=== PATIENT | female | born 1970 | race Caucasian/White ===

== ENCOUNTER → 2017-07-11 | Day surgery (SDC) | payer OTHER ==
[~2017-07-11] VITALS: Ht 157.4 cm; Wt 54.9 kg
[~2017-07-11] MED LIST: PROPRANOLOL HCL60 M1 PO; SUMATRIPTAN SU100 M1 PO; ZANTAC 150150 MG PO; ZYRTEC10 MG PO
--- NOTE | ~2017-07-11 | O ---
[place], [place] OPERATIVE NOTE NAME: DAVE ROD UNIT #: [id number] ROOM: DOCTOR: ROWENA HARRISDAVID BIRTHDATE: [birth year] DOS: 07/11/2017 HISTORY OF PRESENT ILLNESS: A 46-year-old, who was presented with nonspecific epigastric abdominal pain or constipation. Has been given a trial of Amitiza for management of constipation. Also, the patient with abnormal LFTs, minimal alpha fetoprotein elevation. HIDA scan normal. Sonogram ____ study of the kidneys. Normal on ranitidine, BM 1 per week. ALLERGIES: No medication. FAMILY HISTORY: Noncontributory. PAST SURGICAL HISTORY: Unremarkable. PAST MEDICAL HISTORY: Migraine, cephalalgia on Imitrex. SOCIAL HISTORY: Nonsmoker, nonalcohol consumer. PROCEDURE: Today's procedure part of investigation is panendoscopy and colonoscopy. PREMEDICATION: Versed and fentanyl and Diprivan. SCOPE: Olympus forward-viewing colonoscope 10L video. REPORT: After putting the patient in left lateral position and application of lubricant to rectal pouch and digital examination, scope was introduced. Thereafter, under direct visualization, advanced through the length of colon with difficulty. As we get towards the splenic and hepatic flexure tortuosity ____ and chance of perforation enhances therefore. After multiple tries, the scope was withdrawn. The patient extubated and tolerated the procedure well. IMPRESSION: Tortuous colon, which could be the cause of her constipation. PLAN AND DISCUSSION: We are going to proceed with panendoscopy and reassessment. INDICATIONS: The patient has presented with a chief complaint of epigastric distress on Zantac b.i.d., dyspepsia, constipation. PROCEDURE: Today's procedure part of investigation is panendoscopy plus biopsy. PREMEDICATION: Versed and Diprivan. SCOPE: Olympus forward-viewing gastroscope Q10 video. REPORT: After putting the patient in left lateral position and application of lubricant to the scope, the scope was introduced. Thereafter, under direct visualization advanced through the length of esophagus without difficulty into gastric pouch into duodenal bulb, second and third part. Mild gastritis seen. [place], [place] OPERATIVE NOTE NAME: DAVE ROD UNIT #: [id number] ROOM: DOCTOR: ROWENA HARRIS,DAVID BIRTHDATE: [birth year] Antral biopsy obtained. GI reflexion of the scope reveals cardia to be benign. Air was suctioned out. The patient was extubated and tolerated the procedure well. IMPRESSION: Gastritis, status post biopsy. PLAN AND DISCUSSION: The patient's result reviewed. Abnormal LFTs also recognized. Amitiza trial has not yielded much success. We will organize for mapping the colon in case future management leads us to surgical approach and workup on abnormal LFTs still continuing. Her HIDA scan 71%, kidneys scans have been normal. I do not have access to her hepatitis screening panel neither a CT scan of the abdomen results. We will search those. Thank you very much. DAVID GUAMAN MD CM:OPRECORD:OPERATIVE NOTE [id number] DAVID GUAMAN MD 07/11/17 1441 interface
[2017-07-11 10:45] VITALS: BP 106/61
[2017-07-11 13:03] VITALS: BP 103/52
[2017-07-11 13:18] VITALS: BP 107/56
[2017-07-11 13:31] VITALS: BP 109/64
== END | disposition home or self-care (01) ==
LOC: SDC 07-08 10:15
DX: K63.89 Other specified diseases of intestine (principal); K29.50 Unspecified chronic gastritis without bleeding; K59.00 Constipation, unspecified; G43.909 Migraine, unspecified, not intractable, without status migrainosus

== ENCOUNTER → 2021-01-29 | Outpatient (CLI) | payer OTHER ==
[2021-01-29 16:53] LABS: BASO # 0.1 10*3/uL (0.0-0.1); BASO % 0.9 % (0.0-1.0); EOS # 0.3 10*3/uL (0.0-0.4); EOS % 4.6 % (1.0-4.0); HEMATOCRIT 36.9 % (37.0-47.0); LYMPH # 1.8 10*3/uL (1.3-4.4); LYMPH % 27.2 % (27.0-41.0); MEAN CELL VOLUME 93.4 fl (81.0-99.0); MEAN CORPUSCULAR HGB 30.4 pg (27.0-31.0); MEAN CORPUSCULAR HGB CONC 32.5 g/dl (33.0-37.0); MEAN PLATELET VOLUME 10.7 fl (9.6-12.3); MONO # 0.8 10*3/uL (0.1-1.0); NEUT # 3.5 10*3/uL (2.3-7.9); PLATELET COUNT AUTOMATED 187 10*3/uL (130-400); RED BLOOD COUNT 3.95 10*6/uL (4.10-5.10); RED CELL DISTRI WIDTH 12.2 % (0-14.5); WHITE BLOOD COUNT 6.5 10*3/uL (4.8-10.8)
[2021-01-29 16:57] LABS: BILIRUBIN Negative (Negative); BLOOD Negative (Negative); CLARITY Cloudy (Clear); COLOR Yellow (Yellow); GLUCOSE Negative (Negative); KETONE Negative (Negative); LEUKO ESTERASE Trace (Negative); NITRITE Negative (Negative); PH 5.5 (4.5-8.0); UROBILINOGEN 0.2 E.U./dl (0.0-1.0)
[2021-01-29 17:09] LABS: ALBUMIN 4.1 gm/dl (3.1-4.5); ALKALINE PHOSPHATASE 50 U/L (45-117); BUN 13 mg/dl (7-24); CHLORIDE 105 mmol/L (98-107); CHOLESTEROL 207 mg/dL (<200); CREATININE 0.71 mg/dL (0.55-1.02); GAMMA GLUTAMYL TRANSPEPTIDASE 13 U/L (5-55); IRON 80 ug/dL (50-170); LDL CHOLESTEROL 102 mg/dL (9-159); POTASSIUM 3.8 mmol/L (3.5-5.1); SGOT/AST 15 IU/L (3-35); SGPT/ALT 23 U/L (12-78); SODIUM 139 mmol/L (136-145); TOTAL IRON BINDING CAPACITY 361 ug/dl (250-450); TOTAL PROTEIN 7.5 gm/dL (6.4-8.2); TRIGLYCERIDES 67 mg/dl (<150)
[2021-01-29 17:10] LABS: BACTERIA 2+; EPITHELIAL CELLS 31-40; RBC 0-2 rbc/hpf (0-2)
[2021-01-29 17:18] LABS: FERRITIN 9.1 ng/mL (10.0-291.0); VITAMIN D, 25-HYDROXY 50.3 ng/mL (30-100)
== END | disposition home or self-care (01) ==
LOC: LAB 15:58
PROVIDERS: ATTEND Family Medicine
DX: E55.9 Vitamin D deficiency, unspecified (principal); R79.89 Other specified abnormal findings of blood chemistry; R53.83 Other fatigue; R74.8 Abnormal levels of other serum enzymes

== ENCOUNTER → 2021-07-27 | Outpatient (CLI) | payer OTHER ==
[2021-07-27 16:27] LABS: HEMATOCRIT 38.1 % (37.0-47.0); MEAN CELL VOLUME 91.8 fl (81.0-99.0); MEAN CORPUSCULAR HGB 30.6 pg (27.0-31.0); MEAN CORPUSCULAR HGB CONC 33.3 g/dl (33.0-37.0); MEAN PLATELET VOLUME 10.5 fl (9.6-12.3); PLATELET COUNT AUTOMATED 215 10*3/uL (130-400); RED BLOOD COUNT 4.15 10*6/uL (4.10-5.10); RED CELL DISTRI WIDTH 12.4 % (0-14.5); RETICULOCYTE % 0.91 % (0.50-2.50); WHITE BLOOD COUNT 9.7 10*3/uL (4.8-10.8)
[2021-07-27 16:30] LABS: BILIRUBIN 1+ (Negative); BLOOD Negative (Negative); CLARITY Clear (Clear); COLOR Orange (Yellow); GLUCOSE Negative (Negative); KETONE 1+ (Negative); LEUKO ESTERASE Trace (Negative); NITRITE Negative (Negative); PH 5.5 (4.5-8.0); SPECIFIC GRAVITY 1.025 (1.001-1.030)
[2021-07-27 16:33] LABS: MANUAL DIFF REFLEX YES
[2021-07-27 16:45] LABS: ALKALINE PHOSPHATASE 64 U/L (45-117); BUN 15 mg/dl (7-24); CHLORIDE 103 mmol/L (98-107); CHOLESTEROL 177 mg/dL (<200); CREATININE 0.87 mg/dL (0.55-1.02); GAMMA GLUTAMYL TRANSPEPTIDASE 9 U/L (5-55); IRON 67 ug/dL (50-170); LDL CHOLESTEROL 101 mg/dL (9-159); POTASSIUM 3.6 mmol/L (3.5-5.1); SGOT/AST 11 IU/L (3-35); SGPT/ALT 18 U/L (12-78); SODIUM 135 mmol/L (136-145); TOTAL IRON BINDING CAPACITY 342 ug/dl (250-450); TOTAL PROTEIN 7.4 gm/dL (6.4-8.2); TRIGLYCERIDES 71 mg/dl (<150)
[2021-07-27 16:49] LABS: TOTAL CELLS COUNTED 100 #CELLS
[2021-07-27 16:50] LABS: PLATELET SUFFICIENCY NORMAL (NORMAL)
[2021-07-27 22:19] LABS: BACTERIA TRACE; MUCOUS 2+
[2021-07-28 07:06] LABS: H PYLORI IGG AB 0.34 (0.00-0.79)
[2021-07-30 14:07] LABS: H.PYLORI AB IGM <9.0 units (0.0-8.9)
[2021-07-30 15:06] LABS: H.PYLORI IgA <9.0 units (0.0-8.9)
== END | disposition home or self-care (01) ==
LOC: LAB 16:05
PROVIDERS: ATTEND Family Medicine
DX: R79.89 Other specified abnormal findings of blood chemistry (principal); R53.83 Other fatigue; R74.8 Abnormal levels of other serum enzymes

== ENCOUNTER → 2022-10-15 | Outpatient (CLI) | payer OTHER ==
[2022-10-15 15:51] LABS: BASO # 0.1 10*3/uL (0.0-0.1); BASO % 1.2 % (0.0-1.0); EOS # 0.4 10*3/uL (0.0-0.4); EOS % 7.9 % (1.0-4.0); HEMATOCRIT 37.1 % (37.0-47.0); LYMPH # 1.7 10*3/uL (1.3-4.4); LYMPH % 32.9 % (27.0-41.0); MEAN CELL VOLUME 93.9 fl (81.0-99.0); MEAN CORPUSCULAR HGB 31.1 pg (27.0-31.0); MEAN CORPUSCULAR HGB CONC 33.2 g/dl (33.0-37.0); MEAN PLATELET VOLUME 9.8 fl (9.6-12.3); MONO # 0.5 10*3/uL (0.1-1.0); MONO % 10.2 % (3.0-9.0); NEUT # 2.5 10*3/uL (2.3-7.9); NEUT % 47.6 % (47.0-73.0); PLATELET COUNT AUTOMATED 195 10*3/uL (130-400); RED BLOOD COUNT 3.95 10*6/uL (4.10-5.10); RED CELL DISTRI WIDTH 12.5 % (0-14.5); RETICULOCYTE % 0.82 % (0.50-2.50); WHITE BLOOD COUNT 5.2 10*3/uL (4.8-10.8)
[2022-10-15 15:56] LABS: BILIRUBIN Negative (Negative); BLOOD Negative (Negative); CLARITY Clear (Clear); COLOR Yellow (Yellow); GLUCOSE Negative (Negative); KETONE Negative (Negative); LEUKO ESTERASE Negative (Negative); NITRITE Negative (Negative); PH 6.5 (4.5-8.0); SPECIFIC GRAVITY <= 1.005 (1.001-1.030); UROBILINOGEN 0.2 E.U./dl (0.0-1.0)
[2022-10-15 16:04] LABS: BACTERIA 1+
[2022-10-15 16:25] LABS: ALKALINE PHOSPHATASE 53 U/L (46-116); BUN 8 mg/dl (9-23); CHLORIDE 102 mmol/L (98-107); CHOLESTEROL 176 mg/dL (<200); GAMMA GLUTAMYL TRANSPEPTIDASE 12 U/L (0-73); LDL CHOLESTEROL 88 mg/dL (9-159); POTASSIUM 4.8 mmol/L (3.4-5.1); SGPT/ALT 10 U/L (10-49); THYROID STIM HORMONE (HS) 2.737 uIU/ml (0.550-4.780); TOTAL PROTEIN 7.2 gm/dL (6.0-8.0); TRIGLYCERIDES 75 mg/dl (<150)
== END | disposition home or self-care (01) ==
LOC: LAB 15:26
PROVIDERS: ATTEND Family Medicine
DX: E78.5 Hyperlipidemia, unspecified (principal); E55.9 Vitamin D deficiency, unspecified; R79.89 Other specified abnormal findings of blood chemistry; R53.83 Other fatigue; R74.8 Abnormal levels of other serum enzymes

== ENCOUNTER → 2023-05-28 | Outpatient (CLI) | payer OTHER ==
[2023-05-28 16:35] LABS: BASO # 0.1 10*3/uL (0.0-0.1); BASO % 0.8 % (0.0-1.0); BILIRUBIN Negative (Negative); BLOOD 2+ (Negative); CLARITY Clear (Clear); COLOR Yellow (Yellow); EOS # 0.2 10*3/uL (0.0-0.4); EOS % 2.9 % (1.0-4.0); GLUCOSE Negative (Negative); HEMATOCRIT 38.6 % (37.0-47.0); KETONE Negative (Negative); LEUKO ESTERASE Trace (Negative); LYMPH # 1.9 10*3/uL (1.3-4.4); LYMPH % 31.1 % (27.0-41.0); MEAN CELL VOLUME 94.8 fl (81.0-99.0); MEAN CORPUSCULAR HGB 29.7 pg (27.0-31.0); MEAN CORPUSCULAR HGB CONC 31.3 g/dl (33.0-37.0); MEAN PLATELET VOLUME 10.3 fl (9.6-12.3); MONO # 0.7 10*3/uL (0.1-1.0); MONO % 11.5 % (3.0-9.0); NEUT # 3.3 10*3/uL (2.3-7.9); NEUT % 53.5 % (47.0-73.0); NITRITE Negative (Negative); PLATELET COUNT AUTOMATED 200 10*3/uL (130-400); RED BLOOD COUNT 4.07 10*6/uL (4.10-5.10); RED CELL DISTRI WIDTH 12.7 % (0-14.5); RETICULOCYTE % 1.31 % (0.50-2.50); SPECIFIC GRAVITY <= 1.005 (1.001-1.030); UROBILINOGEN 0.2 E.U./dl (0.0-1.0); WHITE BLOOD COUNT 6.2 10*3/uL (4.8-10.8)
[2023-05-28 16:51] LABS: BACTERIA 1+
[2023-05-28 17:04] LABS: ALKALINE PHOSPHATASE 56 U/L (46-116); BUN 15 mg/dl (9-23); CHLORIDE 103 mmol/L (98-107); CHOLESTEROL 192 mg/dL (<200); GAMMA GLUTAMYL TRANSPEPTIDASE 13 U/L (0-73); LDL CHOLESTEROL 89 mg/dL (9-159); POTASSIUM 4.4 mmol/L (3.4-5.1); SGPT/ALT 10 U/L (5-49); T3 UPTAKE 26.1 % (22.4-36.7); THYROXINE (T4) TOTAL 8.4 ug/dl (4.5-10.9); TOTAL PROTEIN 7.4 gm/dL (6.0-8.0); TRIGLYCERIDES 90 mg/dl (<150)
[2023-05-28 17:06] LABS: VITAMIN D, 25-HYDROXY 53.4 ng/mL (30-100)
== END | disposition home or self-care (01) ==
LOC: LAB 16:06
PROVIDERS: ATTEND Family Medicine
DX: R79.89 Other specified abnormal findings of blood chemistry (principal); R53.83 Other fatigue; R74.8 Abnormal levels of other serum enzymes; E55.9 Vitamin D deficiency, unspecified